=== PATIENT | male | born 1945 | race Caucasian/White ===

== ENCOUNTER → 2017-10-31 10:59 | Outpatient (CLI) | payer MEDICARE, OTHER ==
[2014-10-12 09:43] VITALS: BMI 38.5
[~2017-10-31 10:59] MED LIST: ALDACTONE25 MG PO; ALTACE10 MG PO; APIDRA SOL100 UNIT/1 SQ; BABY ASPIRIN81 MG PO; BUMEX 1 MG TAB1 MG PO; CARDIZEM CD180 MG PO; CIPRO500 MG PO; CORDARONE200 MG PO; COREG12.5 MG PO; CYMBALTA30 MG PO; DUONEB 2.5-0.5 M3 ML UPD; ELIQUIS2.5 MG PO; FISH OIL 1,0001 CA1 PO; FLORAJEN3 CAPS460 MG PO; HYDRALAZINE HCL10 MG PO; HYDROCODON-ACE1 EAC7 PO; IMDUR30 MG PO; IPRAT-ALBUT 0.5-3 ML UPD; ISOSORBIDE MONO30 M1 PO; K-DUR20 MEQ PO; K-TAB10 MEQ PO; LAMISIL250 MG PO; LANTUS INSULIN10 ML SC; LANTUS SOL100 UNIT/1; LANTUS SOL100 UNIT/1 SQ; LASIX40 MG PO; LASIX80 MG PO; LOPRESSOR25 MG PO; MIRAPEX0.25 MG PO; MOTRIN600 MG PO; MUCINEX600 MG PO; NITROSTAT0.4 MG SL; NOVOLOG100 U/M1 SC; ONGLYZA2.5 MG PO; PREDNISONE10 MG PO; PREDNISONE5 MG PO; REFRESH TEARS15 ML EACH EYE; ROCEPHIN 2 GM/D52 G1 IV; SKELAXIN800 MG PO; STERAPRED DS 1010 MG PO; TIAZAC/CARDIZE180 MG PO; TIKOSYN500 MCG PO; TORSEMIDE20 MG PO; TRUSOPT 2 % OPT10 ML EACH EYE; ULTRAM50 MG PO; VIBRAMYCIN 100100 MG PO; XALATAN 0.0052.5 ML EACH EYE; XANAX0.5 MG PO; XARELTO15 MG PO; ZYLOPRIM100 MG PO
== END | disposition home or self-care (01) ==
LOC: D.CT 10:59
DX: M54.2 Cervicalgia (principal)

== ENCOUNTER 2017-11-10 17:34 | Inpatient (IN) | payer MEDICARE, OTHER ==
[~2017-11-10] VITALS: Ht 188 cm; Wt 111.1 kg
--- NOTE | ~2017-11-10 | HP ---
PATIENT: ERVIN MANZANO MEDICAL RECORD: [id number] ACCOUNT: [id number] LOCATION:D.[id number] : 46 ADMISSION DATE: 11/10/17 HISTORY AND PHYSICAL EXAMINATION REASON FOR ADMISSION: Chills, fever, sepsis. HISTORY OF PRESENT ILLNESS: The patient is a 72-year-old male who felt poorly for the last 7 to 10 days. He was admitted to [facility] on the complaints of chills, not feeling well. He stayed in the hospital less than 24 hours requesting to go home after feeling better. While there, he had blood work done, which was essentially normal except creatinine of over 3, reflecting his chronic renal insufficiency. He said he felt well for a day and has felt like he is tired, he has had some chills to the point of rigors without documented fever, fatigue and poor appetite. He denies cough or congestion. He came to the office this afternoon for this reason. I had not seen him at [facility], therefore I pulled up his records. Apparently, he had positive blood cultures for Streptococcus hominis, which was not resulted to Dr. Hackett who had hospitalized him. On exam here, he appears chronically ill, but alert with normal vital signs with temperature of 98.9. Lab was drawn, his white count is 12,000 with normal diff. His creatinine is below 3, which is improved. Due to his positive blood cultures and continued chills and rigors, he is being admitted for re-culturing IV antibiotics and ID consult. The patient as well had outpatient tick-titers drawn with a [place] spotted fever at 1:64 which is equivocal in our lab. He denies any recent or remote tick bites, but has noticed some tics in his home. PAST MEDICAL HISTORY: Diabetes mellitus; chronic renal insufficiency, followed in nephrology clinic; chronic myopathy; chronic atrial fibrillation; obstructive sleep apnea; osteoarthritis; benign pulmonary nodule; essential hypertension; hyperlipidemia; remote exposure to Agent [place] in [place]; trigger finger, both hands; history of gout; chronic bronchitis; congestive heart failure; remote community-acquired pneumonia; coronary atherosclerosis; depression; history of shingles; GERD; neuropathy; postherpetic neuralgia; COPD; bronchiectasis. PAST SURGICAL HISTORY: Arthroscopy with meniscus transplant in 1996; cholecystectomy; hernia repair; carpal tunnel release; ACF; cervical spine; heart catheterization with stent placement in 01/2011 and 08/2009; pacemaker removal 2016; trigger finger repair. FAMILY HISTORY: Father and mother both had cancer. Diabetes in his brother. Heart disease in brother. Hypertension in brother and sister. Lung cancer in his father. SOCIAL HISTORY: He is a [place] and had boots on the ground in [place]. Quit smoking 31 years ago, was a cigarette smoker of 80-wyrb-dtrv history. Does not drink alcohol or use illicit drugs. He is and disabled. MEDICATIONS: Lantus 20 units in the morning, sliding scale; Apidra as directed; [place] 5/325 one-half to one every 8 hours for severe pain; vitamin B12 1000 mcg IM every month; Torsemide 20 mg tablets 4 p.o. every morning; lactulose 15 cc p.o. b.i.d. for constipation; meclizine 25 mg every 6 hours p.r.n. dizziness; hydralazine 10 mg tablet p.o. t.i.d.; vitamin D3 5000 units 4 tablets p.o. on Tuesday weekly; Flonase nasal spray daily; carboxymethylcellulose 0.5% eye drops 1 drop to both eyes 4 times a day; tamsulosin 0.4 mg capsule p.o. at bedtime; HISTORY AND PHYSICAL [id number] ERVIN MANZANO Cymbalta 30 mg capsules 1 in the morning and 2 in the evening; testosterone 2 cc or 400 mg IM every 2 weeks; Mirapex 0.25 mg at bedtime; dicyclomine 10 mg with meals p.r.n. abdominal cramping; Nitrostat 0.4 sublingual p.r.n. chest pain; Skelaxin 800 mg p.o. t.i.d.; potassium ER 10 mEq p.o. daily; dorzolamide 2% eye drops 1 drop both eyes b.i.d.; Coreg 12.5 mg p.o. every 12 hours; aspirin 81 mg p.o. daily; allopurinol 100 mg daily; isosorbide ER 30 mg p.o. every 24 hours; Eliquis 2.5 mg daily; amiodarone 200 mg a day. ALLERGIES: PENICILLIN, KEFLEX, SULFA, NEURONTIN. REVIEW OF SYSTEMS: GENERAL: No fevers, head shaking, or chills for approximately a week. Poor appetite, night sweats. HEENT: No recent visual change, sinus congestion, sore throat or new hearing difficulty. RESPIRATORY: Intermittent cough, nonproductive, shortness of breath on exertion, uses chronic home O2 and CPAP. CARDIAC: No chest pain. Peripheral edema has improved on torsemide. Denies palpitations currently. GASTROINTESTINAL: No nausea or vomiting. He has been constipated for approximately 5 days. MUSCULOSKELETAL: He has chronic lumbago. He has had increasing cervical neck pain recently due to a fall a week ago. CT of the cervical spine did not show fracture. GENITOURINARY: Nocturia twice nightly. ENDOCRINE: Denies polyuria, polydipsia, heat or cold intolerance. INTEGUMENT: He has intermittent scabs that from on his lower extremities. SKIN: Very dry. No recent tick bites he states. PSYCHIATRIC: Denies severely depressed mood or suicidal ideation. NEUROLOGIC: Chronic trouble with neuropathy in his lower extremities. Denies memory loss. PHYSICAL EXAMINATION: GENERAL: The patient is awake, but appears moderately ill. He responds to questions appropriately. VITAL SIGNS: His temperature is 98.5 orally, blood pressure is 132/68, heart rate is 88 without ectopic beat. Weight is 252 pounds, height 73 inches, sats 95% on room air. HEENT: Normocephalic. Eyes are clear. Oropharynx with dry mucous membranes. NECK: Supple. CHEST: Distant breath sounds. RESPIRATORY: Crackles in the bases, which are chronic. HEART: Regular rate without gallop. ABDOMEN: Obese, soft, nontender throughout. GENITOURINARY: Deferred. EXTREMITIES: He has no CCE. He has stasis changes in his lower extremities below the knees. He has some scattered scabs on his lower extremities, but no radha cellulitic or open areas. NEUROLOGICAL: He is oriented to person, place, and time. Cranial nerves are grossly intact. Gait was not tested due to leg weakness. MUSCULOSKELETAL: He has marked decrease with cervical flexion, extension, has pain with any movement of the cervical spine. NEUROLOGICAL: As above. SENSORY: He does have decreased sensation to touch in bottoms of both feet. HISTORY AND PHYSICAL [id number] ERVIN MANZANO LABORATORY DATA: [place] spotted fever IgG is 1:64. His white count is 10,950 with 87.4 neutrophils, 4 lymphocytes, 7 monocytes, platelet count is 212,000. H&H is 15 and 48 respectively. His creatinine is 2.41, which is improved from 3.3 previously. BUN is 52. Sodium is 134, potassium is 5.4. Serum CO2 is 33. Urine is pending. Blood cultures as mentioned above with Streptococcus hominis sensitive to Levaquin and vancomycin. ASSESSMENT: 1. Probable Streptococcus sepsis, etiology unknown. 2. Chronic renal insufficiency, improved; hyperkalemia; hypertension; chronic obstructive pulmonary disease; cervical disc disease with cervicalgia; obesity; Agent [place] exposure; restless leg syndrome; essential hypertension; atrial fibrillation; history of coronary artery disease post-percutaneous transluminal coronary angioplasty; benign prostatic hypertrophy; diabetes mellitus. PLAN: The patient is admitted. He will be placed on IV vancomycin with pharmacy to dose. I have talked to Dr. Ruffin, she will see the patient in consultation in the morning. We will check chest x-ray. Repeat blood cultures, urine culture with in and out cath. Further workup pending clinical course. TRANSINT:[id number] Voice Confirmation ID: [id number] DOCUMENT ID: [id number] SVETLANA GRANT MD at 0802 CC: [id number] DICTATION DATE: 11/10/17 172 DRYWALL CARRIER: 11/10/17 1843 ADM IN [facility] [address] [id number]
--- NOTE | ~2017-11-10 | EC ---
PATIENT:ERVIN MANZANO DATE OF SERVICE: 11/10/17 SEX: M MEDICAL RECORD: [id number] DATE OF : 47 LOCATION:D.MS [facility]222 AGE OF PATIENT: 72 ADMISSION DATE: 11/10/17 REFERRING PHYSICIAN: INTERPRETING PHYSICIAN: DARRYL APODACA MD ECHOCARDIOGRAM REPORT ECHO CHARGES 4 ECHO COMPLETE Date: 11/11 CLINICAL DIAGNOSIS: SEPSIS/A-FIB ECHOCARDIOGRAPHIC MEASUREMENTS (adult normal given) AC root (d.<3.7cm) 4.2 cm LV Septum d (<1.2 cm> 1.8 cm Valve Excursion 1.8 cm LV Septum (systole) 2.3 cm Left Atria (s.<4.0cm> 4.4 cm LVPW d(<1.2cm) 1.9 cm RV (d.<2.3cm) 2.9 cm LVPW (sytole) 2.4 cm LV diastole(<5.6CM) 5.6 cm MV E-F(>70mm/sec) cm LV systole 4.0 cm LVOT Diameter 2.0 cm MV exc.(>10mm) cm Est.ejection fraction (50-75%) % DOPPLER: LVIT cm/sec A 47.0 cm/sec E 75.0 cm/sec LA cm/sec RVSP 42.0 mmHg LVOT 85.0 cm/sec AOP1/2T m/s Asc. Ao 149 cm/sec RVOT 59.0 cm/sec RA cm/sec PA 94.0 cm/sec AV Gradient Peak 8.9 mmHg AV Mean 4.3 mmHg AV Area 1.4 cm MV Gradient Peak 3.9 mmHg MV Mean 1.3 mmHg MV Area cm COMMENTS: Consumer Services Advisor: Mack NEWBERRYOE Pilot Boat Operator: 2 Dr. Arroyo TAPE# PACS Pericardial Effusion N DATE OF SERVICE: 11/11/2017 PROCEDURE: Echocardiogram. FINDINGS: 1. Left ventricular chamber size is upper limits of normal, left ventricular systolic function is mildly reduced, overall ejection fraction in the 40% range. 2. Left atrium, right atrium, and right ventricle chamber sizes are mildly dilated. Left atrium measures 4.4 cm. 3. Valvular structures have normal structure and motion. ECHOCARDIOGRAM REPORT [id number] ERVIN MANZANO 4. Doppler interrogation reveals mild mitral regurgitation, moderate tricuspid regurgitation, no other valvular insufficiency or stenosis. Pulmonary systolic pressure is estimated 43 mmHg. 5. No evidence of pericardial effusion or left ventricular thrombus. TRANSINT:[id number] Voice Confirmation ID: [id number] DOCUMENT ID: [id number] DARRYL APODACA MD at 1806 CC: [id number] DICTATION DATE: 11/11/17 1355 4TH GRADE MATH TEACHER: 11/11/17 1413 ADM IN [id number] [place] [address]
[~2017-11-10 17:34] MED LIST changes: -CORDARONE200 MG PO; -COREG12.5 MG PO; -ELIQUIS2.5 MG PO; -FLORAJEN3 CAPS460 MG PO; -HYDRALAZINE HCL10 MG PO; -HYDROCODON-ACE1 EAC7 PO; -ISOSORBIDE MONO30 M1 PO; -LANTUS INSULIN10 ML SC; -ROCEPHIN 2 GM/D52 G1 IV; -TORSEMIDE20 MG PO; -VIBRAMYCIN 100100 MG PO; -ZYLOPRIM100 MG PO
[2017-11-10 17:55] VITALS: BP 162/103; BMI 31.5
[2017-11-10 20:00] VITALS: BP 143/89
[2017-11-11] VITALS: BP 134/74
[2017-11-11 00:57] LABS: APPEARANCE CLEAR (CLEAR); BACTERIA NONE SEEN /hpf (NONE SEEN); BILIRUBIN NEGATIVE (NEGATIVE); COLOR YELLOW (YELLOW); EPITHELIAL CELLS NSEEN /hpf (0-5); GLUCOSE NEGATIVE (NEGATIVE); KETONE NEGATIVE (NEGATIVE); NITRITE NEGATIVE (NEGATIVE); PROTEIN NEGATIVE (NEGATIVE); RED CELLS - URINE 0-5 /hpf (0-5); SPECIFIC GRAVITY 1.015 (1.005-1.020); UROBILINOGEN NORMAL (NORMAL); WHITE CELLS - URINE RARE /hpf (0-5)
[2017-11-11 04:00] VITALS: BP 125/84
[2017-11-11 06:42] LABS: BASOPHILS 0.3 % (0-2); EOSINOPHILS 0.6 % (0-7); HEMATOCRIT 42.4 % (42.0-54.0); HEMOGLOBIN 13.4 g/dL (13.5-17.5); IMMATURE GRANULOCYTES 1.3 % (0-5); LYMPHOCYTES 12.4 % (15-50); MCHC 31.6 g/dL (31.0-37.0); MCV 88.7 fL (80.0-100.0); MEAN PLATELET VOLUME 10.8 fL (7.4-10.4); MONOCYTES 3.3 % (2-11); NEUTROPHILS 82.1 % (40-80); PLATELET COUNT 220 10x3/uL (130-400); RBC 4.78 10x6/uL (4.20-6.10)
[2017-11-11 06:51] LABS: CALCIUM 8.3 mg/dL (8.5-10.1); CARBON DIOXIDE 31.5 mmol/L (21.0-32.0); CREATININE - SERUM 2.6 mg/dL (0.6-1.3); POTASSIUM - SERUM 4.5 mmol/L (3.5-5.1)
[2017-11-11 08:57] VITALS: BP 147/91
[2017-11-11 12:33] VITALS: BP 107/67
[2017-11-11 15:27] VITALS: Ht 188 cm; Wt 111.1 kg
[2017-11-11 20:00] VITALS: BP 143/84
[2017-11-12] VITALS: BP 136/87
[2017-11-12 04:00] VITALS: BP 143/89
[2017-11-12 05:47] LABS: BASOPHILS 0.8 % (0-2); HEMATOCRIT 41.1 % (42.0-54.0); HEMOGLOBIN 12.9 g/dL (13.5-17.5); IMMATURE GRANULOCYTES 3.2 % (0-5); LYMPHOCYTES 10.5 % (15-50); MCH 27.9 pg (26.0-34.0); MCHC 31.4 g/dL (31.0-37.0); MCV 88.8 fL (80.0-100.0); MEAN PLATELET VOLUME 10.7 fL (7.4-10.4); MONOCYTES 12.3 % (2-11); NEUTROPHILS 70.2 % (40-80); PLATELET COUNT 188 10x3/uL (130-400); RBC 4.63 10x6/uL (4.20-6.10); RDW 18.9 % (11.5-14.5)
[2017-11-12 05:48] LABS: WBC 5.9 10x3/uL (4.8-10.8)
[2017-11-12 06:20] LABS: ANION GAP 10.9 mmol/L (8-16); CALCIUM 8.1 mg/dL (8.5-10.1); CARBON DIOXIDE 28.4 mmol/L (21.0-32.0); CREATININE - SERUM 2.4 mg/dL (0.6-1.3); POTASSIUM - SERUM 4.3 mmol/L (3.5-5.1)
[2017-11-12 09:03] VITALS: BP 187/109
[2017-11-12 12:49] VITALS: BP 162/92
[2017-11-12 20:00] VITALS: BP 132/81
[2017-11-13] VITALS: BP 136/84
[2017-11-13 04:00] VITALS: BP 157/87
[2017-11-13 11:28] VITALS: BP 155/94
[2017-11-13 15:43] VITALS: BP 160/103
[2017-11-13 21:04] VITALS: BP 150/96
[2017-11-14 04:00] VITALS: BP 130/73
[2017-11-14 08:57] VITALS: BP 156/106
[2017-11-14 09:19] LABS: ANION GAP 7.9 mmol/L (8-16); CALCIUM 8.3 mg/dL (8.5-10.1); CARBON DIOXIDE 33.5 mmol/L (21.0-32.0); CREATININE - SERUM 2.1 mg/dL (0.6-1.3); POTASSIUM - SERUM 4.4 mmol/L (3.5-5.1); VANCOMYCIN - TROUGH 29.3 ug/mL (10.0-20.0)
[2017-11-14 12:00] VITALS: BP 90/46
[2017-11-14 13:46] VITALS: BP 157/99
[2017-11-14 20:00] VITALS: BP 147/65
[2017-11-15 03:50] VITALS: BP 139/99
[2017-11-15 06:25] LABS: BASOPHILS 0.9 % (0-2); EOSINOPHILS 3.8 % (0-7); HEMATOCRIT 40.9 % (42.0-54.0); HEMOGLOBIN 12.9 g/dL (13.5-17.5); IMMATURE GRANULOCYTES 1.5 % (0-5); LYMPHOCYTES 10.7 % (15-50); MCH 28.1 pg (26.0-34.0); MCHC 31.5 g/dL (31.0-37.0); MCV 89.1 fL (80.0-100.0); MONOCYTES 8.9 % (2-11); NEUTROPHILS 74.2 % (40-80); PLATELET COUNT 192 10x3/uL (130-400); RBC 4.59 10x6/uL (4.20-6.10); RDW 18.7 % (11.5-14.5); WBC 5.5 10x3/uL (4.8-10.8)
[2017-11-15 06:44] LABS: ANION GAP 7.2 mmol/L (8-16); CALCIUM 8.2 mg/dL (8.5-10.1); CARBON DIOXIDE 34.6 mmol/L (21.0-32.0); CREATININE - SERUM 2.2 mg/dL (0.6-1.3); POTASSIUM - SERUM 3.8 mmol/L (3.5-5.1); VANCOMYCIN - RANDOM 21.1 ug/mL (10.0-20.0)
[2017-11-15 09:02] VITALS: BP 165/105
[2017-11-15 13:39] VITALS: BP 138/70
[2017-11-15 17:34] VITALS: BP 132/81
[2017-11-15 20:00] VITALS: BP 139/90
[2017-11-16 06:04] VITALS: BP 142/87
[2017-11-16 06:19] LABS: ANION GAP 8.8 mmol/L (8-16); CALCIUM 8.3 mg/dL (8.5-10.1); CARBON DIOXIDE 33.7 mmol/L (21.0-32.0); CREATININE - SERUM 2.2 mg/dL (0.6-1.3); POTASSIUM - SERUM 3.5 mmol/L (3.5-5.1)
[2017-11-16] MEDS ORDERED: VIBRAMYCIN 100100 MG PO (07:59)
[2017-11-16] MEDS ORDERED: ROCEPHIN 2 GM/D52 G1 IV (07:59)
[2017-11-16] MEDS ORDERED: LANTUS INSULIN10 ML SC (08:02)
[2017-11-16] MEDS ORDERED: FLORAJEN3 CAPS460 MG PO (08:02)
[2017-11-16] MEDS ORDERED: ZYLOPRIM100 MG PO (08:03)
[2017-11-16] MEDS ORDERED: SKELAXIN800 MG PO (08:03)
[2017-11-16] MEDS ORDERED: ELIQUIS2.5 MG PO (08:03)
[2017-11-16] MEDS ORDERED: ISOSORBIDE MONO30 M1 PO (08:04)
[2017-11-16] MEDS ORDERED: HYDRALAZINE HCL10 MG PO (08:04)
[2017-11-16] MEDS ORDERED: COREG12.5 MG PO (08:04)
[2017-11-16] MEDS ORDERED: CORDARONE200 MG PO (08:04)
[2017-11-16] MEDS ORDERED: CYMBALTA30 MG PO ×2 (08:05)
[2017-11-16] MEDS ORDERED: HYDROCODON-ACE1 EAC7 PO (08:06)
[2017-11-16] MEDS ORDERED: TORSEMIDE20 MG PO (08:09)
[2017-11-16 09:33] VITALS: BP 148/95
[2017-11-16 11:30] VITALS: BP 143/92
[2017-11-17 20:08] LABS: AEROBE ID Final report (())
== END 2017-11-16 15:27 | disposition home health service (06) | DRG 872 ==
LOC: D.MS 17:34
PROVIDERS: Family Medicine
PROC: 05HC33Z Insertion of Infusion Device into Left Basilic Vein, Percutaneous Approach (ICD-10-PCS; principal; 2017-11-15)
PROC: B54NZZA Ultrasonography of Left Upper Extremity Veins, Guidance (ICD-10-PCS; 2017-11-15)
DX: A40.9 Streptococcal sepsis, unspecified (principal); N17.9 Acute kidney failure, unspecified; I38 Endocarditis, valve unspecified; E11.9 Type 2 diabetes mellitus without complications; G47.33 Obstructive sleep apnea (adult) (pediatric); E87.5 Hyperkalemia; I10 Essential (primary) hypertension; J44.9 Chronic obstructive pulmonary disease, unspecified; G25.81 Restless legs syndrome; M50.30 Other cervical disc degeneration, unspecified cervical region; Z87.891 Personal history of nicotine dependence; E66.9 Obesity, unspecified; Z68.31 Body mass index [BMI] 31.0-31.9, adult

== ENCOUNTER → 2017-11-21 19:04 | Outpatient (CLI) | payer MEDICARE, OTHER ==
[2017-11-11 15:27] VITALS: BMI 31.4
[~2017-11-21 19:04] MED LIST changes: +CORDARONE200 MG PO; +COREG12.5 MG PO; +ELIQUIS2.5 MG PO; +FLORAJEN3 CAPS460 MG PO; +HYDRALAZINE HCL10 MG PO; +HYDROCODON-ACE1 EAC7 PO; +ISOSORBIDE MONO30 M1 PO; +LANTUS INSULIN10 ML SC; +ROCEPHIN 2 GM/D52 G1 IV; +TORSEMIDE20 MG PO; +VIBRAMYCIN 100100 MG PO; +ZYLOPRIM100 MG PO
[2017-11-21 19:12] LABS: BASOPHILS 1.7 % (0-2); EOSINOPHILS 4.2 % (0-7); HEMATOCRIT 43.3 % (42.0-54.0); HEMOGLOBIN 13.6 g/dL (13.5-17.5); IMMATURE GRANULOCYTES 0.7 % (0-5); MCH 28.4 pg (26.0-34.0); MCHC 31.4 g/dL (31.0-37.0); MCV 90.4 fL (80.0-100.0); MEAN PLATELET VOLUME 10.9 fL (7.4-10.4); MONOCYTES 8.7 % (2-11); NEUTROPHILS 73.7 % (40-80); PLATELET COUNT 156 10x3/uL (130-400); RBC 4.79 10x6/uL (4.20-6.10); RDW 18.4 % (11.5-14.5); WBC 5.4 10x3/uL (4.8-10.8)
[2017-11-21 19:20] LABS: CREATININE - SERUM 2.8 mg/dL (0.6-1.3)
== END | disposition home or self-care (01) ==
LOC: D.LABREF 19:04
PROVIDERS: Student in an Organized Health Care Education/Training Program
DX: R68.89 Other general symptoms and signs (principal); R94.4 Abnormal results of kidney function studies; R79.89 Other specified abnormal findings of blood chemistry

== ENCOUNTER → 2017-11-28 16:55 | Outpatient (CLI) | payer MEDICARE, OTHER ==
[2017-11-11 15:27] VITALS: BMI 31.4
[2017-11-28 17:09] LABS: BASOPHILS 0.7 % (0-2); EOSINOPHILS 6.4 % (0-7); HEMATOCRIT 44.7 % (42.0-54.0); HEMOGLOBIN 14.3 g/dL (13.5-17.5); IMMATURE GRANULOCYTES 0.3 % (0-5); LYMPHOCYTES 11.3 % (15-50); MCH 28.8 pg (26.0-34.0); MCV 90.1 fL (80.0-100.0); MEAN PLATELET VOLUME 11.5 fL (7.4-10.4); MONOCYTES 9.8 % (2-11); NEUTROPHILS 71.5 % (40-80); PLATELET COUNT 178 10x3/uL (130-400); RBC 4.96 10x6/uL (4.20-6.10); RDW 17.9 % (11.5-14.5); WBC 6.7 10x3/uL (4.8-10.8)
[2017-11-28 17:19] LABS: CREATININE - SERUM 2.3 mg/dL (0.6-1.3)
== END | disposition home or self-care (01) ==
LOC: D.LABREF 16:55
PROVIDERS: Student in an Organized Health Care Education/Training Program
DX: J02.0 Streptococcal pharyngitis (principal); A41.9 Sepsis, unspecified organism; J45.909 Unspecified asthma, uncomplicated

== ENCOUNTER → 2017-12-05 21:42 | Outpatient (CLI) | payer MEDICARE, OTHER ==
[2017-11-11 15:27] VITALS: BMI 31.4
[2017-12-06 09:17] LABS: BASOPHILS 1.8 % (0-2); EOSINOPHILS 4.6 % (0-7); HEMATOCRIT 44.3 % (42.0-54.0); HEMOGLOBIN 13.3 g/dL (13.5-17.5); IMMATURE GRANULOCYTES 0.7 % (0-5); LYMPHOCYTES 10.6 % (15-50); MCV 96.5 fL (80.0-100.0); MEAN PLATELET VOLUME 11.2 fL (7.4-10.4); MONOCYTES 9.2 % (2-11); NEUTROPHILS 73.1 % (40-80); PLATELET COUNT 154 10x3/uL (130-400); RBC 4.59 10x6/uL (4.20-6.10); RDW 18.3 % (11.5-14.5); WBC 5.6 10x3/uL (4.8-10.8)
[2017-12-06 09:27] LABS: CREATININE - SERUM 2.7 mg/dL (0.6-1.3)
== END | disposition home or self-care (01) ==
LOC: D.LABREF 21:42
PROVIDERS: Student in an Organized Health Care Education/Training Program
DX: A40.9 Streptococcal sepsis, unspecified (principal)

== ENCOUNTER 2018-01-05 09:51 | Outpatient (CLI) | payer MEDICARE, OTHER ==
[~2018-01-05] VITALS: Ht 188 cm; Wt 114.8 kg
[2018-01-05] VITALS (8 sets, daily range): BP systolic 85–133; BP diastolic 53–86; BMI 32.5
--- NOTE | ~2018-01-05 | HEMODYNAMI ---
PATIENT:ERVIN MANZANO MEDICAL RECORD: [id number] : 47 [facility] [id number] ADMISSION DATE: 01/05/18 Generatedon:01/06/201813:26 Patient name: ERVIN MANZANO Patient #: [id number] SSN: D OB: 1945 Date of study: 01/06/2018 Page: Of Hemodynamic Procedure Report Patient Data Patient Demographics Procedure consent was obtained First Name: ERVIN Gender: Male Last Name: NATACHA : 1945 Middle Initial: M Age: 72 year(s) Patient #: [id number] Race: Additional ID: [id number] Contact details [address]: [address] [place] [address] State: [place] City: [place] Zip code: [address] Past Medical History History of disease Date Diagnosis Comments CAD Valvular heart disease Hypertension Diabetes Arrhythmias - Ventricular tachycardias (VT)->Sustained VT Allergies Allergen Reaction Date Comments Reported Penicillins 04/12/2014 Sulfa drugs 04/12/2014 Other allergy 04/12/2014 keflex Admission Admission Data Admission Date: 01/05/2018 Admission Time: 14:44 Admit Source: Other Room #: [facility] Procedure Procedure Types Cath Procedure Diagnostic Procedure [facility] LH w/Coronaries PCI Procedure Coronary Stent Coronary Stent Initial Procedure Description Procedure Date Procedure Date: 01/06/2018 Procedure Start Time: 13:07 Procedure End Time: 13:25 Procedure Staff Name Function Fermín Larson MD Performing Physician Dung Chan RN Nurse Sherie Campbell RT Scrub Friedashagufta Mac RT Monitor Procedure Data Cath Procedure Fluoroscopy Diagnostic fluoroscopy Total fluoroscopy Time: 3.1 time: 3.1 min min Diagnostic fluoroscopy Total fluoroscopy dose: 374 dose: 374 mGy mGy Contrast Material Contrast Material Type Amount (ml) Isovue 300 60 Entry Location Entry Primary Successful Side Size Upsize Upsize Entry Closure Her ccessful Closure Location (Fr) 1 (Fr) 2 (Fr) Remarks Device Remarks Radial Right 6 Fr Mechanical artery Short Compression Estimated blood loss: 10 ml Diagnostic catheters Device Type Used For End Catheter Placement DIAGNOSTIC [place] 110cm 5 LV Angiography Fr catheter ([id number]) DIAGNOSTIC [place] 110cm 5 Left Coronary Fr catheter ([id number]) Angiography DIAGNOSTIC [place] 110cm 5 Right Coronary Fr catheter ([id number]) Angiography Procedure Complications No complications Procedure Medications Medication Administration Route Dosage Oxygen etCO2 Nasal cannula 2 l/min Heparin Flush Bag added to field 2 bags (1000units/500ml NS) 0.9% NaCl I.V. 100 ml/hr Radial Cocktail added to field 1 syringe (Verapomil 2mg/Nitro 400mcg/Heparin 1500units) Fentanyl I.V. 50 mcg Versed I.V. 1 mg Fentanyl I.V. 50 mcg Versed I.V. 1 mg Radial Cocktail I.A. 1 syringe (Verapomil 2mg/Nitro 400mcg/Heparin 1500units) Heparin Bolus I.V. 4000 units Plavix P.O. 75 mg Hemodynamics Rest Heart Rate: 80 (bpm) Snapshots Pre Cath Intra NCS Post Cath Vital Signs Time Heart Resp SPO2 etCO2 NIBP (mmHg) Rhythm Pain Sedation Rate (ipm) (%) (mmHg) Status Level (bpm) 12:45:31 75 16 91 39.2 131/87(120) NSR 0 (11) 10(A) , No pain 12:49:47 77 17 94 0 136/89(114) NSR 0 (11) 10(A) , No pain 12:54:01 85 17 93 22.6 122/89(109) NSR 0 (11) 10(A) , No pain 12:58:15 80 17 94 48.3 123/80(107) NSR 0 (11) 10(A) , No pain 13:02:29 74 17 100 14.3 137/91(119) NSR 0 (11) 10(A) , No pain 13:06:47 73 17 99 0 139/88(113) NSR 0 (11) 10(A) , No pain 13:11:03 70 16 99 12.8 120/71(90) NSR 0 (11) 9(A) , No pain 13:15:17 81 16 98 12 117/72(99) NSR 0 (11) 9(A) , No pain 13:19:33 84 16 98 8.2 124/77(100) NSR 0 (11) 9(A) , No pain 13:23:51 80 13 98 8.3 124/77(99) NSR 0 (11) 9(A) , No pain Medications Time Medication Route Dose Verified Delivered Reason Not es Effectiveness by by 12:39:49 Oxygen etCO2 2 l/min Fermín Razo Per physician Nasal Marsha Chan RN cannula 12:39:57 Heparin Flush added 2 bags Fermín Razo used for Bag to Marsha Chan RN procedure (1000units/500ml field NS) 12:40:06 0.9% NaCl I.V. 100 Fermín Razo Per physician ml/hr Marsha Chan RN 12:40:13 Radial Cocktail added 1 Fermín Razo used for (Verapomil to syringe Marsha Chan RN procedure 2mg/Nitro field 400mcg/Heparin 1500units) 13:06:40 Fentanyl I.V. 50 mcg Fermín Razo for sedation Marsha Chan RN 13:06:46 Versed I.V. 1 mg Fermín Razo for sedation Marsha Chan RN 13:08:53 Fentanyl I.V. 50 mcg Fermín Razo for sedation Marsha Chan RN 13:08:55 Versed I.V. 1 mg Fermín Razo for sedation Marsha Chan RN 13:09:03 Radial Cocktail I.A. 1 Fermín Kovacs for (Verapomil syringe Marsha Larson MD vasodilation 2mg/Nitro 400mcg/Heparin 1500units) 13:16:09 Heparin Bolus I.V. 4000 Fermín Razo for units Marsha Chan RN anticoagulation 13:20:32 Plavix P.O. 75 mg Fermín Razo for Marsha Chan RN anticoagulation Procedure Log Time Note 12:03:14 Informed consent obtained and on chart 12:03:17 Admit Source: Other 12:29:13 Diagnostic Cath status Elective 12:29:15 Dung Chan RN sent for patient. Start room use. 12:29:16 Time tracking: Regular hours (M-F 7:00 - 5:00) 12:29:22 Plan of Care:Hemodynamics will remain stable., Cardiac rhythm will remain stable., Comfort level will be maintained., Respiratory function will remain adequate., Patient/ family verbilizes understanding of procedure., Procedure tolerated without complication., Recovers from procedure without complications.. 12:39:49 Oxygen 2 l/min etCO2 Nasal cannula was administered by Dung Chan RN; Per physician; 12:39:57 Heparin Flush Bag (1000units/500ml NS) 2 bags added to field was administered by Dung Chan RN; used for procedure; 12:40:06 0.9% NaCl 100 ml/hr I.V. was administered by Dung Chan RN; Per physician; 12:40:13 Radial Cocktail (Verapomil 2mg/Nitro 400mcg/Heparin 1500units) 1 syringe added to field was administered by Dung Chan RN; used for procedure; 12:40:22 Patient received from Pre/Post Procedure Room to CCL 3 Alert and oriented. Tansferred to table in Supine position. 12:44:17 Vital chart was started 12:51:29 Warm blankets applied, and sara hugger turned on for patient comfort. 12:51:29 Correct patient and procedure confirmed by team. 12:51:31 ECG and BP/O2 sat monitors applied to patient. 12:51:35 Baseline sample Acquired. 12:51:36 Full Disclosure recording started 12:51:40 Rhythm: paced 12:51:46 H&P Date Dictated: 01/05/2018 Within 30 days and on chart.. 12:51:54 Pre-procedure instructions explained to patient. 12:51:55 Pre-op teaching completed and patient verbalized understanding. 12:51:56 Family in patients room. 12:52:04 Patient NPO since Midnight. 12:52:12 Is the patient allergic to Iodine/contrast media? No. 12:53:08 Is patient on blood thinner?Yes 12:53:10 ACC The patient was administered the following blood thiners within the last 24 hours: ACCPlavix 12:54:08 ELIQUIS LAST DOSE 01/05/18 @ 0730 12:54:09 Patient diabetic? Yes. 12:54:25 If diabetic: On Metformin? No 12:54:27 Previous problem with sedation/anesthesia? No ? 12:54:28 Snore? Yes 12:54:29 Sleep apnea? Yes 12:54:30 Deviated septum? No 12:54:31 Opens mouth fully? Yes 12:54:32 Sticks out tongue? Yes 12:54:34 Airway obstruction? No ? 12:54:37 Dentures? No ? 12:54:40 Pre procedure: right dorsailis pedis pulse 2+ Normal; easily identifiable; not easily obliterated 12:54:42 Modified Andrea's test Ulnar < 7 seconds 12:54:44 Patient pain scale 0/10 ?. 12:55:00 IV patent on arrival in right hand with 0.9% NaCl at [facility]. 12:55:02 Lab results completed and on chart. 12:55:08 Right Radial & Right Groin area was prepped with chlora-prep and draped in sterile fashion 12:55:09 Alarms reviewed by R. N. 12:55:09 Sharps counted by scrub and verified by R.N. 12:55:14 Use device set Radial Dx or PCI 12:55:15 ACIST Syringe (98462) opened to sterile field. 12:55:16 Medline Cath Pack ([id number]) opened to sterile field. 12:55:16 Bag Decanter (2002S) opened to sterile field. 12:55:17 DIAGNOSTIC WIRE .035 260cm J wire (765484) opened to sterile field. 12:55:18 ACIST Hand Control (65037) opened to sterile field. 12:55:18 ACIST Manifold (32362) opened to sterile field. 12:55:20 Tegaderm 4 x 4 (1626W) opened to sterile field. 12:55:21 SHEATH 6Fr Prelude Radial ([id number]) opened to sterile field. 12:57:08 Physician paged 12:59:38 Zero performed for pressure channel P1 13:00:03 Physician responded to page. 13:05:41 Final Timeout: patient, procedure, and site verified with staff and physician. All members of the team are in agreement. 13:05:44 Right Radial site verified by team. 13:05:47 Physical assessment completed. ASA score P 2 - A patient with mild systemic disease as per Fermín Larson MD. 13:05:50 Sedation plan: IV Moderate Sedation Medication:Versed, Fentanyl 13:06:40 Fentanyl 50 mcg I.V. was administered by Dung Chan RN; for sedation; 13:06:46 Versed 1 mg I.V. was administered by Dung Chan RN; for sedation; 13:07:39 Local anesthetic to right radial artery with Lidocaine 2% by Fermín Larson MD.INITIAL ACCESS ONLY 13:08:19 A 6 Fr Short sheath was inserted into the Right Radial artery 13:08:53 Fentanyl 50 mcg I.V. was administered by Dung Chan RN; for sedation; 13:08:55 Versed 1 mg I.V. was administered by Dung Chan RN; for sedation; 13:09:03 Radial Cocktail (Verapomil 2mg/Nitro 400mcg/Heparin 1500units) 1 syringe I.A. was administered by Fermín Larson MD; for vasodilation; 13:09:14 A DIAGNOSTIC [place] 110cm 5 Fr catheter ([id number]) was advanced over the wire and used for LV Angiography. 13:10:37 LV gram done using MCDANIEL 13:10:42 EF : 40 % 13:10:46 Injector settings: Ml/sec: 5, Volume: 15, 13:10:52 A DIAGNOSTIC [place] 110cm 5 Fr catheter ([id number]) was advanced over the wire and used for Left Coronary Angiography. 13:11:59 A DIAGNOSTIC [place] 110cm 5 Fr catheter (199136) was advanced over the wire and used for Right Coronary Angiography. 13:12:39 TR BAND Large ([id number]) opened to sterile field. 13:13:42 Catheter removed. 13:13:51 Use device set [facility] PCI 13:13:56 INFLATOR Merit BasixCompak (PU9070) opened to sterile field. 13:13:59 CHOICE PT Extra Support 182cm wire ([id number]) opened to sterile field. 13:14:01 GUIDE 6FR XBLAD 3.5 catheter ([id number]) opened to sterile field. 13:14:56 6 Fr XBLAD 3.5 guide catheter was inserted over the wire 13:15:49 CHOICE PT ES wire advanced. 13:16:09 Heparin Bolus 4000 units I.V. was administered by Dung Chan RN; for anticoagulation; 13:17:21 Place stent Inflation Number: 1 A INTEGRITY RX 2.5 x 14 stent ([id number]) was prepped and advanced across the 2nd Ob Elena. The stent was deployed at 10 JESÚS for 0:10 (min:sec). 13:17:26 Stent catheter was removed intact over wire. 13:17:26 Wire removed. 13:17:27 Guide catheter removed. 13:17:37 Sheath removed intact; hemostasis achieved with Mechanical Compression to the Right Radial artery. 13:17:40 Procedure ended.(Physican Out) 13:18:31 Fluoroscopy time 03.10 minutes. 13:18:36 Flurop Dose total: 374 13:18:36 Fluoroscopy dose: 374 mGy 13:18:39 Contrast amount:Isovue 300 60ml. 13:18:41 Sharps counted by scrub and verified by R.N. 13:18:59 TR band inflated with 12cc of air. 13:19:01 Insertion/operative site no bleeding no hematoma. 13:19:09 Post right radial artery:stable, clean and dry 13:19:36 Post Procedure Pulses reassessed and unchanged 13:19:38 Post-procedure physical assessment completed. ASA score P 2 - A patient with mild systemic disease as per Fermín Larson MD. 13:20:32 Plavix 75 mg P.O. was administered by Dung Chan RN; for anticoagulation; 13:20:54 Post procedure rhythm: unchanged. 13:20:57 Post procedure instruction explained to patient.Patient verbalizes understanding. 13:20:59 Estimated blood loss: 10 ml 13:21:00 Patient needs reinforcement of post procedure teaching. 13:21:07 Procedure type changed to Cath procedure, Diagnostic procedure, LHC, LHC w/Coronaries, PCI procedure, Coronary Stent, Coronary Stent Initial 13:21:15 Procedure Complication : No complications 13:21:17 See physician's report for complete and final results. 13:21:30 Procedure and supply charges have been captured, reviewed, submitted and are correct. 13:25:41 Vital chart was stopped 13:25:44 Report given to PCU. 13:25:47 Patient transfered to PCU with Bed. 13:25:52 Procedure ended. 13:25:52 Full Disclosure recording stopped 13:25:55 End room use (Document Last) Intervention Summary Intervention Notes Time ActionType Lesion and Equipment Action# Pressure Duration Attributes Used 13:17:21 Place stent 2nd Ob Elena INTEGRITY RX 1 10 00:10 2.5 x 14 stent ([id number]) Device Usage Item Name Manufacture Quantity Catalog Number Hospital Part Current M inimal Lot# / Charge Number Stock Stock Serial# Code ACIST Syringe Acist 1 50639 666108 425652 383114 2 0 (48584) Medical Systems Inc Medline Cath Medline 1 [id number] 761058 41779 449016 5 Pack ([id number]) Bag Decanter Microtek 1 2001S 625588 69453 563263 5 () Medical Inc. DIAGNOSTIC WIRE St [place] 1 778277 348559 235025 740363 3 0 .035 260cm J wire (325028) ACIST Hand Acist 1 96714 960622 246129 398849 5 Control (86117) Medical Systems Inc ACIST Manifold Acist 1 84610 962145 522268 552413 5 (35438) Medical Systems Inc Tegaderm 4 x 4 3M 1 1626W 282038 793564 141812 5 (1626W) SHEATH 6Fr Merit 1 [id number] 895411 592477 854268 5 Prelude Radial Medical ([id number]) DIAGNOSTIC Terumo 1 40-5013 437974 724781 417276 5 [place] 110cm 5 Fr catheter (078368) TR BAND Large Terumo 1 [id number] 666297 522238 835333 4 0 ([id number]) INFLATOR Merit Merit 1 [id number] 248699 393465 564387 1 5 [employer] ([id number]) CHOICE PT Extra Brock 1 [id number] 004188 305271 778939 5 Support 182cm Scientific wire ([id number]) GUIDE 6FR XBLAD Cardinal 1 [id number] 389432 317259 088409 1 0 3.5 catheter Health ([id number]) INTEGRITY RX Medtronic 1 [id number] 179824 010359 474815 5 [id number] 2.5 x 14 stent ([id number]) Signature Audit [place] Stage Time Signature Unsigned Intra-Procedure 01/06/2018 Frieda 1:26:06 PM Counts RT(R) Signatures Monitor : Frieda Signature : Counts RT Date : Time : [facility] [address] [place] [address]
--- NOTE | ~2018-01-05 | MORECARE ---
CASE MANAGEMENT DISCHARGE SUMMARY PATIENT: ERVIN MANZANO UNIT: [id number] ADM DATE: 01/05/18 AGE: 72 : 46 SEX: M ROOM/BED: D.7 AUTHOR: NAHUM LIVINGSTON PHYSICIAN: REFERRING PHYSICIAN: DARRYL APODACA MD DATE OF SERVICE: 01/09/18 Discharge Plan Patient Name: ERVIN MANZANO Facility: [facility]:[place] : 1945 Planned Disposition: Home Anticipated Discharge Date: 01/06/18 Discharge Date: 01/06/2018 Expected LOS: 1 Initial Reviewer: CASEY Initial Review Date: 01/09/2018 Generated: 01/09/18 6:29 pm Comments DCP- Discharge Planning Updated by CASEY: Fred Cordero on 01/09/18 4:[address] Patient Name: ERVIN MANZANO Encounter No: [id number] : 1945 Primary Insurance: MEDICARE A & B Anticipated DC Date: 01-06-2018 Planned Disposition: Home WITH HOME HEALTH RESUMPTION External Planned Provider: [facility] DCP follow-up note: CM RECEIVED CALL FROM MARIE OF [facility], , WHO ASKED FOR DISCHARGE INFORMATION AND ORDERS IN ORDER TO RESUME EXISTING [facility] HOME [facility]. CM FAXED HOSPITAL STAY AND DISCHARGE INFORMATION TO [place] AT [phone]. Fred Cordero, CASE MANAGEMENT External Providers External Provider: [facility] Next Contact Date: 01/09/2018 Service Request Date: Service Type: Resolution: Reviewer: Comments: Last DP export: 01/09/18 7:47 Patient Name: ERVIN MANZANO Page 39286 at 2084 All edits/amendments must be made on the electronic document DICTATION DATE: 01/09/181727 CIVIL RIGHTS ATTORNEY: TONY 01/09/181727 RPT#: [id number] DC DATE:01/06/18 STATUS: DIS IN [place] [id number] [place] [address] END OF REPORT
--- NOTE | ~2018-01-05 | MORECARE ---
CASE MANAGEMENT DISCHARGE SUMMARY PATIENT: ERVIN MANZANO UNIT: [id number] ADM DATE: 01/05/18 AGE: 72 : 46 SEX: M ROOM/BED: D.2116 AUTHOR: NAHUM LIVINGSTON PHYSICIAN: REFERRING PHYSICIAN: DARRYL APODACA MD DATE OF SERVICE: 01/09/18 Discharge Plan Patient Name: ERVIN MANZANO Facility: [facility]:[place] : 1945 Planned Disposition: Home Anticipated Discharge Date: 01/06/18 Discharge Date: 01/06/2018 Expected LOS: 1 Initial Reviewer: [email or web address] Initial Review Date: 01/09/2018 Generated: 01/09/18 9:47 am Patient Name: ERVIN MANZANO Page 59490 at 0847 All edits/amendments must be made on the electronic document DICTATION DATE: 01/09/18845 SUPERVISOR BILLPOSTING: DM 01/09/18845 RPT#: [id number] DC DATE:01/06/18 STATUS: DIS IN [facility] [address] [place] [address] END OF REPORT
--- NOTE | ~2018-01-05 | OP ---
PATIENT NAME: ERVIN MANZANO MEDICAL RECORD: [id number] :[birth year] LOCATION:D.M2 D.2117 ADMISSION DATE:01/05/18 SURGEON: DARRYL APODACA MD DATE OF OPERATION: 01/06/2018 PROCEDURES: 1. PTCA stent left circumflex. 2. Left heart catheterization. 3. Selective coronary angiography. 4. Left ventriculogram. INDICATION: Unstable angina and coronary artery disease. PROCEDURE IN DETAIL: After informed consent was obtained and after detailed description of risks, benefits as well as alternative therapies, the patient elected to proceed with angiogram and angioplasty. The right femoral area was prepped and draped in normal sterile fashion. Right femoral artery was cannulated via modified Seldinger technique with placement of 6-Guinean sheath. All catheters exchanged through this sheath. FINDINGS: Left ventriculogram was performed in standard 30-degree MCDANIEL view, reveals global hypokinesis, ejection fraction 40%. SELECTIVE CORONARY ANGIOGRAPHY: 1. Left main is with no significant angiographic disease. 2. Left anterior descending has mild irregularities, but no flow-limiting stenosis. 3. The left circumflex is dominant giving off multiple obtuse marginals. The terminal obtuse marginal has 80% to 90% stenosis at the ostium. 4. Right coronary is iwaty-ra-usgjuese sized with no significant stenosis. PTCA STENT OF THE LEFT CIRCUMFLEX: The stent used was a 2.5 x 14 mm Integrity. Result was 0% residual stenosis. OVERALL IMPRESSION: Successful PTCA stent of the left circumflex going from 80% to 90% initial stenosis to 0% residual. TRANSINT:[id number] Voice Confirmation ID: [id number] DOCUMENT ID: [id number] DARRYL APODACA MD at 1913 CC: [id number] DICTATION DATE: 01/06/18 1325 CLINICAL LABORATORY TECHNOLOGIST: 01/06/18 1333 DIS IN 01/06/18 [facility] [address] [place] [id number]
--- NOTE | ~2018-01-05 | HP ---
PATIENT: ERVIN MANZANO MEDICAL RECORD: [id number] ACCOUNT: [id number] LOCATION:[address] : [birth year] ADMISSION DATE: 01/05/18 PCP: SVETLANA GRANT MD HISTORY AND PHYSICAL EXAMINATION DIAGNOSES: 1. Unstable angina. 2. Coronary artery disease. 3. Previous percutaneous transluminal coronary angioplasty stent. 4. Paroxysmal atrial fibrillation. 5. Sick sinus syndrome, status post pacemaker. 6. Chronic obstructive pulmonary disease. 7. Smoking history. 8. Hypertension. HISTORY OF PRESENT ILLNESS: Mr. Manzano presents with 2 days of increasing episodes of chest pain, chest discomfort compatible with angina. He does have a history of coronary artery disease. Last cardiac stent was over a year ago. He does have a history of atrial fibrillation for which he is maintained in sinus rhythm on Cordarone. He is on Eliquis as well. He took Eliquis this morning. PHYSICAL EXAMINATION: GENERAL APPEARANCE: Well-nourished, well-developed, appears stated age. Level of distress, comfortable. PSYCHIATRIC: Mental status, alert, normal affect. Orientation, oriented to time, place and person. EYES: Lids and conjunctiva, noninjected. No discharge, no pallor. ENT: Lips, teeth, gums, normal dentition. Oropharynx, no cyanosis, no pallor. NECK: Carotid arteries, bilateral normal upstroke, no bruits, no thrills. JUGULAR VEINS: No jugular venous pressure or distention. CERVICAL LYMPH NODES: Nontender, nonenlarged. THYROID: Not enlarged. Nontender. No nodules. LUNGS: Respiratory effort, unlabored. CHEST: Normal curvature. No thoracic deformity. No chest wall tenderness. Percussion, resonant. Auscultation, clear. No wheezes, no rales, no rhonchi. CARDIOVASCULAR: Precordial exam, nondisplaced. No heaves or pericardial thrills. Rate and rhythm, regular. Heart sounds, normal S1, normal S2. No S3, no gallop, no rub. Systolic murmur, not heard. Diastolic murmur, not heard. EXTREMITIES: No cyanosis, no edema. Peripheral pulses, full and equal in all extremities, except as noted. No bruits appreciated. ABDOMEN: Soft, nondistended. Normal aorta. No bruit. Nontender. No masses. Liver, nontender, no hepatomegaly. Spleen, nontender, no splenomegaly. MUSCULOSKELETAL: No joint tenderness. No joint swelling. No erythema. NEUROLOGICAL: Normal gait, normal strength, normal tone. SKIN: Warm and dry. OVERALL IMPRESSION: Chest pain compatible with angina, unstable fashion. We will proceed with coronary angiography. We will hold the Eliquis, reload with Plavix. Coronary angiography tomorrow. TRANSINT:[id number] Voice Confirmation ID: [id number] DOCUMENT ID: [id number] HISTORY AND PHYSICAL [id number] ERVIN MANZANO JEFFREY MD at 0924 CC: [id number] DICTATION DATE: 01/05/18 1155 ARCHIVES SPECIALIST: 01/05/18 1201 ADM IN [place] [id number] [place] [id number]
[2018-01-05 10:39] LABS: BASOPHILS 0.7 % (0-2); EOSINOPHILS 4.4 % (0-7); HEMATOCRIT 41.4 % (42.0-54.0); HEMOGLOBIN 13.4 g/dL (13.5-17.5); IMMATURE GRANULOCYTES 0.7 % (0-5); LYMPHOCYTES 11.9 % (15-50); MCH 30.6 pg (26.0-34.0); MCHC 32.4 g/dL (31.0-37.0); MCV 94.5 fL (80.0-100.0); MEAN PLATELET VOLUME 10.4 fL (7.4-10.4); MONOCYTES 9.4 % (2-11); NEUTROPHILS 72.9 % (40-80); PLATELET COUNT 164 10x3/uL (130-400); RBC 4.38 10x6/uL (4.20-6.10); RDW 16.2 % (11.5-14.5); WBC 7.7 10x3/uL (4.8-10.8)
[2018-01-05 10:48] LABS: APTT 31.5 SECONDS (22.8-39.4); INR 1.16 (0.85-1.17); PROTIME 14.4 SECONDS (11.6-15.0)
[2018-01-05 10:53] LABS: ALBUMIN 3.2 g/dL (3.4-5.0); ALKALINE PHOSPHATASE 86 U/L (46-116); ALT (SGPT) 24 U/L (10-68); BILIRUBIN - TOTAL 0.36 mg/dL (0.2-1.3); CALC OSMOLALITY 295 mosm/kg (275-300); CALCIUM 8.6 mg/dL (8.5-10.1); CHLORIDE - SERUM 104 mmol/L (98-107); CREATININE - SERUM 2.9 mg/dL (0.6-1.3); POTASSIUM - SERUM 4.8 mmol/L (3.5-5.1); PROTEIN - SERUM 6.4 g/dL (6.4-8.2); SODIUM 141 mmol/L (136-145); UREA NITROGEN 53 mg/dL (7-18); eGFR NON AFRICAN AMERICAN 23 mL/min (90-120)
[2018-01-05 10:54] LABS: GLUCOSE 110 mg/dL (74-106)
[2018-01-05 11:05] LABS: CKMB 5.6 U/L (0.0-3.6); CREATINE KINASE 107 UL (21-232); MAGNESIUM - SERUM 2.1 mg/dL (1.8-2.4); PRO BNP 1342 pg/mL (0-125)
[2018-01-05 11:08] LABS: TROPONIN-I 0.099 ng/mL (0.000-0.060)
[2018-01-05] MEDS ORDERED: PACERONE100 MG PO (16:05)
[2018-01-05] MEDS ORDERED: BAYER CHEWABLE81 MG PO (16:07)
[2018-01-05] MEDS ORDERED: CYMBALTA30 MG PO (16:08)
[2018-01-05] MEDS ORDERED: HYDRALAZINE HCL50 MG PO (16:10)
[2018-01-05] MEDS ORDERED: LISINOPRIL5 MG PO (16:13)
[2018-01-05] MEDS ORDERED: K-TAB10 MEQ PO (16:14)
[2018-01-05] MEDS ORDERED: DEMADEX20 MG PO (16:16)
[2018-01-06 01:00] VITALS: BP 141/94
[2018-01-06 04:00] VITALS: BP 138/87
[2018-01-06 10:55] VITALS: BP 129/85
[2018-01-06 14:00] VITALS: Ht 188 cm; Wt 114.8 kg
[2018-01-06] MEDS ORDERED: PLAVIX75 MG PO (15:25)
[2018-01-06 15:58] VITALS: BP 127/82
== END 2018-01-06 19:20 | disposition home or self-care (01) ==
LOC: OBSVTIME → D.OPS 09:51 → D.ER 09:51 → D.M2 14:44 → D.EDHOLD 14:44 → D.M2 15:01 → D.EDHOLD 15:01 → OBSVTIME 15:28 → D.ER 15:44 → EDSTATUS 01-06 09:00 → D.OPS 01-06 19:20 → D.M2 01-06 19:20
PROVIDERS: Family Medicine
DX: I25.110 Atherosclerotic heart disease of native coronary artery with unstable angina pectoris (principal); Z95.5 Presence of coronary angioplasty implant and graft; Z87.891 Personal history of nicotine dependence; Z95.0 Presence of cardiac pacemaker; I48.0 Paroxysmal atrial fibrillation; J44.9 Chronic obstructive pulmonary disease, unspecified; I10 Essential (primary) hypertension

== ENCOUNTER → 2018-05-31 09:21 | Outpatient (CLI) | payer MEDICARE, OTHER ==
[2018-01-06 14:00] VITALS: BMI 32.5
[~2018-05-31 09:21] MED LIST changes: +BAYER CHEWABLE81 MG PO; +DEMADEX20 MG PO; +HYDRALAZINE HCL50 MG PO; +LISINOPRIL5 MG PO; +PACERONE100 MG PO; +PLAVIX75 MG PO
[2018-05-31 10:22] LABS: BASOPHILS 0.8 % (0-2); EOSINOPHILS 2.1 % (0-7); HEMATOCRIT 48.7 % (42.0-54.0); HEMOGLOBIN 14.9 g/dL (13.5-17.5); IMMATURE GRANULOCYTES 0.6 % (0-5); LYMPHOCYTES 16.3 % (15-50); MCH 27.3 pg (26.0-34.0); MCHC 30.6 g/dL (31.0-37.0); MCV 89.4 fL (80.0-100.0); MEAN PLATELET VOLUME 10.5 fL (7.4-10.4); NEUTROPHILS 78.2 % (40-80); RBC 5.45 10x6/uL (4.20-6.10); RDW 16.2 % (11.5-14.5); WBC 9.8 10x3/uL (4.8-10.8)
[2018-05-31 10:26] LABS: ANION GAP 9.7 mmol/L (8-16); CALCIUM 7.9 mg/dL (8.5-10.1); CARBON DIOXIDE 34.4 mmol/L (21.0-32.0); CREATININE - SERUM 2.9 mg/dL (0.6-1.3); POTASSIUM - SERUM 4.1 mmol/L (3.5-5.1)
[2018-05-31 10:29] LABS: PLATELET COUNT 198 10x3/uL (130-400)
== END | disposition home or self-care (01) ==
LOC: D.LAB 09:21
PROVIDERS: ATTEND Internal Medicine Cardiovascular Disease
DX: R53.81 Other malaise (principal)

== ENCOUNTER 2018-10-27 10:59 | Outpatient (CLI) | payer MEDICARE, BC ==
[~2018-10-27] VITALS: Ht 188 cm; Wt 110.9 kg
--- NOTE | ~2018-10-27 | HEMODYNAMI ---
PATIENT:ERVIN MANZANO MEDICAL RECORD: [id number] : 47 LOCATION:D.CAT ADMISSION DATE: 10/27/18 Generatedon:10/27/201814:34 Patient name: ERVIN MANZANO Patient #: [id number] SSN: D OB: 1945 Date of study: 10/27/2018 Page: Of Hemodynamic Procedure Report Patient Data Patient Demographics Procedure consent was obtained First Name: ERVIN Gender: Male Last Name: NATACHA : 1945 Middle Initial: M Age: 73 year(s) Patient #: [id number] Race: Additional ID: [id number] Contact details Address: [address] [place] [address] State: [place] City: [place] Zip code: [address] Past Medical History History of disease Date Diagnosis Comments CAD Valvular heart disease Hypertension Diabetes Arrhythmias - Ventricular tachycardias (VT)->Sustained VT Allergies Allergen Reaction Date Comments Reported Penicillins 04/12/2014 Sulfa drugs 04/12/2014 Other allergy 04/12/2014 keflex Admission Admission Data Admission Date: 10/27/2018 Admission Time: 10:59 Admit Source: Other Lab Results Lab Result Date: 10/27/2018 Lab Result Time: 0:00 Biochemistry Name Units Result Min Max BUN mg/dl 44 --(----)-* 7 18 Creatinine mg/dl 2.7 --(----)-* 0.6 1.3 Procedure Procedure Types Cath Procedure Diagnostic Procedure LHC LHC w/Coronaries Procedure Description Procedure Date Procedure Date: 10/27/2018 Procedure Start Time: 14:24 Procedure End Time: 14:33 Procedure Staff Name Function Fermín Larson MD Performing Physician John Jennings RT Monitor Eduardo León RN Nurse Sherie Campbell RT Scrub Procedure Data Cath Procedure Fluoroscopy Diagnostic fluoroscopy Total fluoroscopy Time: 0.8 time: 0.8 min min Diagnostic fluoroscopy Total fluoroscopy dose: 436 dose: 436 mGy mGy Contrast Material Contrast Material Type Amount (ml) Isovue 300 41 Entry Location Entry Primary Successful Side Size Upsize Upsize Entry Closure Her ccessful Closure Location (Fr) 1 (Fr) 2 (Fr) Remarks Device Remarks Radial Right 6 Fr Mechanical artery Short Compression Estimated blood loss: 10 ml Diagnostic catheters Device Type Used For End Catheter Placement DIAGNOSTIC Ogden 110cm 5 Procedure Fr catheter ([id number]) Procedure Medications Medication Administration Route Dosage 0.9% NaCl I.V. 100 ml/hr Oxygen etCO2 Nasal cannula 2 l/min Heparin Flush Bag added to field 2 bags (1000units/500ml NS) Lidocaine 2% added to field 20 Radial Cocktail added to field 1 syringe (Verapamil 2mg/Nitro 400mcg/Heparin 1500units) Radial Cocktail I.A. 1 syringe (Verapamil 2mg/Nitro 400mcg/Heparin 1500units) Versed I.V. 1 mg Fentanyl I.V. 50 mcg Lasix I.V. 60 Hemodynamics Rest Heart Rate: 60 (bpm) Pressure Samples Time Site Value (mmHg) Purpose Heart Use Rate(bpm) 14:25 LV 119/15,16 Snapshot 80 Snapshots Pre Cath Intra NCS Post Cath Vital Signs Time Heart Resp SPO2 etCO2 NIBP (mmHg) Rhythm Pain Sedation Rate (ipm) (%) (mmHg) Status Level (bpm) 14:08:55 75 17 97 33.7 154/113(136) Paced 0 (11) 10(A) , No pain 14:13:10 71 25 98 35.2 159/115(142) Paced 0 (11) 10(A) , No pain 14:17:25 73 17 97 0 152/91(134) Paced 0 (11) 10(A) , No pain 14:21:37 72 16 94 0 145/103(127) Paced 0 (11) 10(A) , No pain 14:25:51 76 14 92 9.7 141/84(104) Paced 0 (11) 9(A) , No pain 14:29:59 75 16 92 35.2 135/100(114) Paced 0 (11) 9(A) , No pain 14:34:05 73 15 94 8.9 140/99(115) Paced 0 (11) 10(A) , No pain Medications Time Medication Route Dose Verified Delivered Reason Notes Effectiveness by by 14:12:57 0.9% NaCl I.V. 100 Eduardo Eduardo Per ml/hr Lorigan Lorigan physician RN RN 14:13:07 Oxygen etCO2 2 l/min Eduardo Eduardo for low 02 Nasal Loreli León sats cannula RN RN 14:13:17 Heparin Flush added 2 bags Eduardo Eduardo used for Bag to Romelia León procedure (1000units/500ml field RN RN NS) 14:13:26 Lidocaine 2% added 20ml Eduardo Eduardo for local to vial Lorigan Lorigan anesthetic field RN RN 14:13:37 Radial Cocktail added 1 Eduardo Eduardo used for (Verapamil to syringe Lorigan Romelia procedure 2mg/Nitro field RN RN 400mcg/Heparin 1500units) 14:21:31 Versed I.V. 1 mg Eduardo Eduardo for sedation Romelia León RN RN 14:21:43 Fentanyl I.V. 50 mcg Eduardo Eduardo for sedation Romelia León RN RN 14:25:24 Radial Cocktail I.A. 1 Eduardo Fermín for (Verapamil syringe Romelia Tauth MD vasodilation 2mg/Nitro RN 400mcg/Heparin 1500units) 14:30:08 Lasix I.V. 60 Eduardo Eduardo Per Romelia León physician RN pouncing lathe operator Log Time Note 13:50:05 Eduardo León RN sent for patient. Start room use. 13:59:27 Diagnostic Cath Status : Elective 14:00:25 Admit Source: Other 14:01:02 Procedure Status Elective Heart Cath (OP). 14:01:29 Time tracking: Regular hours (M-F 7:00 - 5:00) 14:01:34 Plan of Care:Hemodynamics will remain stable., Cardiac rhythm will remain stable., Comfort level will be maintained., Respiratory function will remain adequate., Patient/ family verbilizes understanding of procedure., Procedure tolerated without complication., Recovers from procedure without complications.. 14:01:42 Patient received from Pre/Post Procedure Room to CCL 2 Alert and oriented. Tansferred to table in Supine position. 14:01:49 Signed procedure consent form obtained from patient. 14:01:53 Warm blankets applied, and sara hugger turned on for patient comfort. 14:01:58 Correct patient and procedure confirmed by team. 14:07:44 ECG and BP/O2 sat monitors applied to patient. 14:07:46 Vital chart was started 14:11:16 Baseline sample Acquired. 14:11:42 Rhythm: paced 14:12:06 Full Disclosure recording started 14:12:57 0.9% NaCl 100 ml/hr I.V. was administered by Eduardo León RN; Per physician; 14:13:07 Oxygen 2 l/min etCO2 Nasal cannula was administered by Eduardo León RN; for low 02 sats; 14:13:17 Heparin Flush Bag (1000units/500ml NS) 2 bags added to field was administered by Eduardo León RN; used for procedure; 14:13:19 H&P Date Dictated: 10/26/2018 Within 30 days and on chart., H&P Addendum completed by physician on day of procedure. (MUST COMPLETE FOR ALL OUTPATIENTS). 14:13:26 Lidocaine 2% 20ml vial added to field was administered by Eduardo León RN; for local anesthetic; 14:13:37 Radial Cocktail (Verapamil 2mg/Nitro 400mcg/Heparin 1500units) 1 syringe added to field was administered by Eduardo León RN; used for procedure; 14:14:41 Pre-procedure instructions explained to patient. 14:14:41 Pre-op teaching completed and patient verbalized understanding. 14:14:45 Family in patients room. 14:14:53 Patient NPO since Midnight. 14:15:37 ALLERGIES: PCN, NERONTIN, SULFA, KEFLEX 14:15:43 Is the patient allergic to Iodine/contrast media? No. 14:15:47 Is patient on blood thinner?Yes 14:15:52 ACC The patient was administered the following blood thiners within the last 24 hours: Eliquis 14:15:58 Patient diabetic? Yes. 14:15:59 If diabetic: On Metformin? No 14:16:01 ----Pre-sedation anethsthesia assessment.---- 14:16:04 Previous problem with sedation/anesthesia? No ? 14:16:18 Snore? Yes 14:16:19 Sleep apnea? Yes 14:16:31 Deviated septum? No 14:16:32 Opens mouth fully? Yes 14:16:33 Sticks out tongue? Yes 14:16:47 Airway obstruction? Yes COPD 14:16:50 Dentures? No ? 14:16:57 Patient pain scale 0/10 ?. 14:17:05 IV patent on arrival in left forearm with 0.9% NaCl at [facility]. 14:20: Lab Result : BUN 44 mg/dl 14:20: Lab Result : Creatinine 2.7 mg/dl 14:20: Lab results completed and on chart. 14:20:23 Right Radial & Right Groin area was prepped with chlora-prep and draped in sterile fashion 14:: Alarms reviewed by ROctaviano N. 14:: Sharps counted by scrub and verified by R.N. 14:20: Physician arrived 14: --------ALL STOP TIME OUT------ : Final Timeout: patient, procedure, and site verified with staff and physician. All members of the team are in agreement. 14:20:37 Right Radial & Right Groin site verified by team. 14:21:08 Fire Safety Assessment: A--An alcohol-based skin anteseptic being used preoperatively., C--Open oxygen or nitrous oxide is being used., D--An ESU, laser, or fiber-optic light is being used. 14:21: Physical assessment completed. ASA score P 2 - A patient with mild systemic disease as per Fermín Larson MD. 14:21:19 4) 15-29 Severley reduced kidney function. 14:21:31 Versed 1 mg I.V. was administered by Eduardo León RN; for sedation; 14:21:43 Fentanyl 50 mcg I.V. was administered by Eduardo León RN; for sedation; 14:21:52 Maximum allowable contrast dose (3.7 X eGFR X 0.75)69 ml. 14:22:00 Sedation plan: IV Moderate Sedation Medication:Versed, Fentanyl 14:22:38 Use device set Radial Dx or PCI 14:22:39 ACIST Syringe (03426) opened to sterile field. 14:22:40 Medline Cath Pack (CHUT01400) opened to sterile field. 14:22:40 Bag Decanter (2002) opened to sterile field. 14:22:41 ACIST Hand Control (11297) opened to sterile field. 14:22:42 ACIST Manifold (36966) opened to sterile field. 14:22:43 Tegaderm 4 x 4 (1626W) opened to sterile field. 14:22:44 MBrace Wrist Support (585498712) opened to sterile field. 14:22:46 EMERALD Guide Wire (282-523) opened to sterile field. 14:22:47 SHEATH 6FR RAIN (0838760) opened to sterile field. 14:24:07 Procedure started. 14:24:12 Local anesthetic to right femoral artery with Lidocaine 2% by Fermín Larson MD.INITIAL ACCESS ONLY 14:24:17 Zero performed for pressure channel P1 14:24:18 A 6 Fr Short sheath was inserted into the Right Radial artery 14:25:21 A DIAGNOSTIC Ogden 110cm 5 Fr catheter (345370) was advanced over the wire and used for Procedure. 14:25:24 Radial Cocktail (Verapamil 2mg/Nitro 400mcg/Heparin 1500units) 1 syringe I.A. was administered by Fermín Larson MD; for vasodilation; 14:26:34 LV hemodynamics recorded. 14:26:40 LV gram done using CMDANIEL 14::46 EF : 30 % 14:27:02 LCA angiography performed. 14:27:10 RCA angiography performed. 14:28:01 Catheter removed. 14:28:11 TR BAND Standard ([id number]) opened to sterile field. 14:28:32 Sheath removed intact; hemostasis achieved with Mechanical Compression to the Right Radial artery. 14:28:35 Procedure ended.(Physican Out) 14:29:59 Fluoroscopy time 00.80 minutes. 14:30:04 Fluoroscopy dose: 436 mGy 14:30:04 Flurop Dose total: 436 14:30:08 Lasix 60 I.V. was administered by Eduardo León RN; Per physician; 14:30:10 Dose Area Product 55626 mGy/cm. 14:30:15 Contrast amount:Isovue 300 41ml. 14:30:18 Maximum allowable dose exceeded? No. 14:30:23 Sharps counted by scrub and verified by R.N. 14:30:38 TR band inflated with 11cc of air. 14:30:41 Insertion/operative site no bleeding no hematoma. 14:30:47 Post right radial artery:stable 14:30:56 Post-procedure physical assessment completed. ASA score P 2 - A patient with mild systemic disease as per Fermín Larson MD. 14:32:29 Post procedure rhythm: paced 14:33:01 Estimated blood loss: 10 ml 14:33:03 Patient needs reinforcement of post procedure teaching. 14:33:05 Procedure and supply charges have been captured, reviewed, submitted and are correct. 14:33:23 Vital chart was stopped 14:33:23 See physician's report for complete and final results. 14:33:30 Report given to Pre/Post Procedure Room. 14:33:43 Patient transfered to Pre/Post Procedure Room with Stretcher. 14:33:49 Procedure ended. 14:33:49 Full Disclosure recording stopped 14:33:54 End room use (Document Last) Device Usage Item Name Manufacture Quantity Catalog Hospital Part Current Minima l Lot# / Number Charge Number Stock Stock Serial# Code ACIST Acist 1 91713 152854 [id number] 20 Syringe Medical (09700) Systems Inc Medline Medline 1 [id number] [id number] 27620 315467 5 Cath Pack ([id number]) Bag Microtek 1 2001S 365446 46040 316253 5 Decanter Medical Inc. () ACIST Hand Acist 1 82710 383860 484469 551344 5 Control Medical (64234) Systems Inc ACIST Acist 1 02123 980393 719241 946397 5 Manifold Medical (29603) Systems Inc Tegaderm 4 3M 1 1626W 633301 171780 812651 5 x 4 (1626W) MBrace Advanced 1 140-0250-00 664139 87098 807383 5 Wrist Vascular Support Dynamics ([id number]) EMERALD Cardinal 1 502-455 809458 358735 535691 5 Guide Wire [facility] (502455) SHEATH 6FR Cardinal 1 7403863 704463 7943228 943032 5 [facility] (6375591) DIAGNOSTIC Terumo 1 40-9683 809443 943708 049667 5 Ogden 110cm 5 Fr catheter (031799) TR BAND Terumo 1 DTL04-QNK 927467 824102 143250 40 Standard ([id number]) Signature Audit [place] Stage Time Signature Unsigned Intra-Procedure 10/27/2018 John Jennings 2:34:40 PM RT(R) (CV) Signatures Performing Physician : Signature : Fermín Larson MD Date : Time : Monitor : John Jennings RT Signature : Date : Time : Nurse : Eduardo Lorigan Signature : RN Date : Time : [address] [place] [address]
[2018-10-27] MEDS ORDERED: ELIQUIS2.5 MG PO (11:19)
[2018-10-27] MEDS ORDERED: ANDROGEL5 GM TP (11:19)
[2018-10-27 11:42] VITALS: BP 151/95; Ht 188 cm; Wt 110.9 kg
[2018-10-27 12:03] LABS: BASOPHILS 0.7 % (0-2); EOSINOPHILS 3.5 % (0-7); HEMATOCRIT 46.1 % (42.0-54.0); HEMOGLOBIN 14.9 g/dL (13.5-17.5); IMMATURE GRANULOCYTES 0.3 % (0-5); LYMPHOCYTES 8.4 % (15-50); MCHC 32.3 g/dL (31.0-37.0); MCV 92.8 fL (80.0-100.0); MEAN PLATELET VOLUME 10.4 fL (7.4-10.4); MONOCYTES 7.6 % (2-11); NEUTROPHILS 79.5 % (40-80); PLATELET COUNT 212 10x3/uL (130-400); RBC 4.97 10x6/uL (4.20-6.10); RDW 14.3 % (11.5-14.5); WBC 7.5 10x3/uL (4.8-10.8)
[2018-10-27 12:19] LABS: ANION GAP 8.6 mmol/L (8-16); CALCIUM 9.1 mg/dL (8.5-10.1); CARBON DIOXIDE 34.7 mmol/L (21.0-32.0); CREATININE - SERUM 2.7 mg/dL (0.6-1.3); POTASSIUM - SERUM 4.3 mmol/L (3.5-5.1)
[2018-10-27 12:48] LABS: CHOL - HDL RATIO 3.1 ratio (2.3-4.9); LDL-HDL RATIO 1.7 ratio (1.5-3.5)
--- NOTE | 2018-10-27 14:40 | NUR ---
PT RECEIVED VIA STRETCHER FRO RECOVERY, REPORT REC'D FROM Margarita NEVAREZ RN. PT SLEEPING, VERBALLY AROUSABLE. HR NSR RATE 72, BP 147/105, STATES HE IS DUE TO TAKE HIS 2ND DOSE OF BP MEDS. O2 SAT 84 ON 3L/NC, PT HAS SLEEP APNEA. TR BAND TO AND IMMOBILIZER TO R WRIST, DRESSING CDI NO BLEEDING OR SWELLING NOTED. CAP REFILL BRISK AND ARM PINK AND WARM. AT BEDSIDE, CALL LIGHT IN REACH
[2018-10-27] MEDS ORDERED: COREG25 MG PO (15:07)
[2018-10-27] MEDS ORDERED: LISINOPRIL10 MG PO (15:07)
--- NOTE | 2018-10-27 15:14 | NUR ---
PT RESTING QUIETLY, O2 CHANGED FROM NC TO MASK, O2 SAT NOW 96 ON 2L. TR BAND IN PLACE, DRESSING CDI NO BLEEDING OR SWELLING NOTED. AT BEDSIDE, CALL LIGHT IN REACH
--- NOTE | 2018-10-27 16:00 | NUR ---
PT SITTING UP IN BED, DENIES PAIN OR DISCOMFORT. TR BAND IN PLACE, 3 ADD'L CC OF AIR REMOVED W/O BLEEDING OR SWELLING NOTED. 02 REMOVED, 02 SAT 93 ON ROOM AIR. TOLERATED SANDWICH W/O NAUSEA. 1605 DR APODACA AT BEDSIDE, TALKING W PT REGARDING PLAN OF CARE AND PROCEDURE RESULTS.
--- NOTE | 2018-10-27 16:24 | NUR ---
DISCHARGE INSTRUCTIONS REVIEWED W PT AND , BOTH VERBALIZED UNDERSTANDING. IV REMOVED W CATH INTACT, MONITORS REMOVED AND PT UP TO DRESS. PT VOIDED 375CC CLEAR YELLOW URINE IN URINAL.
--- NOTE | 2018-10-27 16:30 | NUR ---
TR BAND AND REMAINING AIR REMOVED. NO BLEEDING OR SWELLING NOTED. 2X2 AND TEGADERM DRESSING APPLIED. PT AMBULATED TO BR, VOIDING W/O DIFFICULITY
--- NOTE | 2018-10-27 16:40 | NUR ---
PT DISCHARGED TO PRIVATE VEHICLE WITH ALL BELONGINGS
--- NOTE | 2018-11-07 12:04 | OP ---
PATIENT NAME: ERVIN MANZANO MEDICAL RECORD: [id number] :47 LOCATION:D.CAT ADMISSION DATE: SURGEON: DARRYL APODACA MD DATE OF OPERATION: 10/27/2018 DATE OF SERVICE: 10/27/2018 PROCEDURES: 1. Left heart catheterization. 2. Selective coronary angiography. 3. Left ventriculogram. INDICATION: Angina, coronary artery disease, and cardiomyopathy. PROCEDURE IN DETAIL: After informed consent was obtained and after a detailed description of risks, benefits as well as alternative therapies, the patient elected to proceed with angiogram and heart catheterization. The right radial area was prepped and draped in normal sterile fashion. Right radial artery was cannulated via modified Seldinger technique with placement of 5-Pashto sheath. All catheters exchanged through this sheath. FINDINGS: Left ventriculogram was performed in standard 30-degree MCDANIEL view, reveals global hypokinesis, ejection fraction now in the 30% range. SELECTIVE CORONARY ANGIOGRAPHY: Left main, left anterior descending, left circumflex, right coronary have only minimal irregularities, no flow-limiting stenosis. OVERALL IMPRESSION: Cardiomyopathy, worsened, previous ejection fraction was in the 40% range. No hemodynamically significant stenosis. At this time, center medical management on treatment of the cardiomyopathy. TRANSINT:[id number] Voice Confirmation ID: [id number] DOCUMENT ID: [id number] DARRYL APODACA MD at 1204 CC: [id number] DICTATION DATE: 10/27/18 1430 OUTPLACEMENT CONSULTANT: 10/27/18 1501 DEP CLI 10/27/18 [place] [id number] [place] [address]
== END 2018-10-27 16:40 | disposition home or self-care (01) ==
LOC: D.CATH 10:59
PROVIDERS: ATTEND Internal Medicine Interventional Cardiology
DX: I42.9 Cardiomyopathy, unspecified (principal); Z01.812 Encounter for preprocedural laboratory examination